=== PATIENT | male | born 1985 | race Caucasian/White ===

== ENCOUNTER 2018-03-12 17:48 | Inpatient (IN) ==
[2018-03-12 18:46] LABS: Basophils % 0.2 %; Eosinophils # 0.1 K/mcL (0.0-0.6); Eosinophils % 0.6 %; Hematocrit 45.4 % (37.5-50.1); Hemoglobin 15.8 g/dL (12.9-16.9); Immature Granulocytes % 0.4 % (0-4); Lymphocytes # 1.9 K/mcL (0.6-4.6); Lymphocytes % 15.2 %; Mean Corpuscular HGB Conc 34.8 g/dL (31.6-35.5); Mean Corpuscular Volume 86.1 fL (83.0-100.0); Mean Platelet Volume 10.1 fL (9.4-12.4); Monocytes # 0.8 K/mcL (0.0-1.3); Monocytes % 6.2 %; Neutrophils # 9.7 K/mcL (1.6-8.9); Platelet Count 200 K/mcL (140-400); Red Blood Count 5.27 M/mcL (4.19-5.50); Red Cell Distribution Width 12.6 % (11.5-14.5); Segmented Neutrophils % 77.4 %
[2018-03-12 19:04] LABS: Alanine Aminotransferase 34 Units/L (7-52); Albumin 4.2 g/dL (3.5-5.7); Albumin/Globulin Ratio 1.2 (1.1-2.2); Alkaline Phosphatase 55 Units/L (34-104); Aspartate Amino Transferase 15 Units/L (13-39); BUN/Creatinine Ratio 11 (6-26); Bilirubin,Direct 0.2 mg/dL (0.0-0.2); Bilirubin,Indirect 0.6 mg/dL (0.0-1.2); Bilirubin,Total 0.8 mg/dL (0.3-1.0); Blood Urea Nitrogen 11 mg/dL (6-20); Calcium 9.6 mg/dL (8.6-10.3); Carbon Dioxide 26 mEq/L (23-29); Chloride 100 mEq/L (98-107); Globulin 3.4 g/dL (2.4-3.5); Glucose 95 mg/dL (70-105); Lipase 14 Units/L (11-82); Osmolality,Calculated 277 (280-300); Potassium 4.1 mEq/L (3.5-5.1); Sodium 134 mEq/L (136-145); Total Protein 7.6 g/dL (6.4-8.9); eGFR For African Americans > 60 (> 60); eGFR For Non-African Americans > 60 (> 60)
[2018-03-12] MEDS ORDERED: Isovue-370 500 ML INFUS..BTL IV ONE (19:30)
[2018-03-12] MEDS ORDERED: *HR* Morphine 2 MG/ML SYRINGE IVP ONE (19:30)
--- NOTE | 2018-03-12 19:53 | Emergency Department Note ---
Disposition Clinical Impression: Diverticulitis Disposition: Admitted As Inpatient Condition: Good Instructions: Diverticulitis (ED) Referrals: NONE,PCP [Primary Care Provider] - Forms: ED Satisfaction Letter, Work/School Release Time of Disposition: 20:57 Abdominal Pain HPI - General Chief Complaint: ED Abdominal Pain Stated Complaint: abd pain Time Seen by Provider: 03/12/18 19:18 Source: patient Mode of arrival: ambulatory Limitations: no limitations Nursing Notes Reviewed: Yes Vital Signs Reviewed: Yes - History of Present Illness Pt Subjective Complaint: abdominal pain Onset (ago): day(s) (3 days) Consistency: constant Location: LLQ Pain Severity: moderate Pain Scale: 4 Quality: aching Radiation: none - Related Data Home Medications Medication Instructions Recorded Confirmed Gas-X 03/11/18 Tylenol 03/11/18 Previous Rx's Medication Instructions Recorded Na Phos,M-B/Na Phos,Di-Ba [Fleet 230 ml RC ONCE PRN #2 enema 03/11/18 Enema Extra] Polyethylene Glycol 3350 [MiraLAX] 17 gm PO BID #28 powd.pack 03/11/18 Allergies Allergy/AdvReac Type Severity Reaction Status Date / Time No Known Allergies Allergy Verified 03/12/18 17:59 All systems ED: reviewed and negative except as stated. Review of Systems: As Per HPI Constitutional: Denies: fever, chills, weakness, weight change Eyes: Denies: eye pain, eye discharge, vision change Cardiovascular: Denies: chest pain, palpitations, dyspnea on exertion, edema, syncope Respiratory: Denies: cough, dyspnea, wheezes, hemoptysis, stridor Gastrointestinal: Reports: abdominal pain, constipation Genitourinary: Denies: urgency, dysuria, frequency, hematuria Musculoskeletal: Denies: back pain, neck pain, arthralgia, myalgia Integumentary: Denies: rash, abrasion, lesions Neurological: Denies: headache, weakness, numbness, paresthesias, confusion, abnormal gait, vertigo Psychiatric: Denies: anxiety, depression, suicidal thoughts, homicidal thoughts , auditory hallucinations, visual hallucinations Endocrine: Denies: fatigue Hematological/Lymphatic: Denies: easy bleeding, easy bruising Allergic/Immunologic: Denies: facial swelling, urticaria Abdominal Pain PMH - Past Medical History Medical history: Reports: no medical history - Social History Smoking status: 2nd Hand Smoke Exposure Alcohol use: Reports: occasionally Physical Exam - General Limitations: no limitations General appearance: alert, in no apparent distress - Head Head exam: atraumatic, normocephalic - Eye Eye exam: Present: normal appearance, PERRL, EOMI - ENT ENT exam: normal exam, normal oropharynx, mucous membranes moist - Neck Neck exam: Present: normal inspection, full ROM, trachea midline - Chest Chest inspection: Present: normal inspection, symmetric chest wall rise - Respiratory Respiratory exam: Present: normal lung sounds bilaterally - Cardiovascular Cardiovascular exam: Present: regular rate, normal rhythm, normal heart sounds - Abdominal Exam Abdominal exam: Present: soft, tenderness Abdominal tenderness: Present: LLQ - Extremities Exam Extremities exam: Present: normal inspection, full ROM. Absent: tenderness, pedal edema - Neurological Exam Neurological exam: Present: alert, oriented X3 - Psychiatric Psychiatric exam: Present: normal affect, normal mood - Skin Skin exam: Present: warm, dry, intact, normal color Course Course Narrative: This is a 33-year-old male with pronounced left lower quadrant tenderness. Concern is for diverticulitis As noted below, evaluation was consistent with diverticulitis. Radiology called to report perforation. I discussed his situation with Dr. Mann, the on- call surgeon, who recommended we go ahead with piperacillin/tazobactam and admission to the hospital. Vital Signs Temperature 100.0 F H 03/12/18 17:57 Pulse Rate 109 03/12/18 17:57 Respiratory Rate 18 03/12/18 17:57 Blood Pressure 149/96 03/12/18 17:57 O2 Sat by Pulse Oximetry 98 03/12/18 17:57 Temperature 100.0 F H 03/12/18 17:57 Pulse Rate 109 03/12/18 17:57 Respiratory Rate 18 03/12/18 17:57 Blood Pressure 149/96 03/12/18 17:57 O2 Sat by Pulse Oximetry 98 03/12/18 17:57 Oxygen Delivery Oxygen Delivery Room Air Abdominal Pain - Differential Diagnosis Differential Diagnosis: Likely: diverticulitis - Medical Records Medical records reviewed: Yes I reviewed the patient's medical records. - Lab Data Lab results reviewed: Yes I reviewed the patient's lab results. Result diagrams: 03/12/18 18:29 03/12/18 18:29 Lab Results 07/06/18 07/06/18 Range/Units 18:29 18:29 WBC 12.5 H (4.3-11.1) K/mcL RBC 5.27 (4.19-5.50) M/mcL Hgb 15.8 (12.9-16.9) g/dL Hct 45.4 (37.5-50.1) % MCV 86.1 (83.0-100.0) fL MCH 30.0 (28.0-33.3) pg MCHC 34.8 (31.6-35.5) g/dL RDW 12.6 (11.5-14.5) % Plt Count 200 (140-400) K/mcL MPV 10.1 (9.4-12.4) fL Immature Gran % 0.4 (0-4) % Seg Neutrophils % 77.4 % Lymphocytes % 15.2 % Monocytes % 6.2 % Eosinophils % 0.6 % Basophils % 0.2 % Neutrophils # 9.7 H (1.6-8.9) K/mcL Lymphocytes # 1.9 (0.6-4.6) K/mcL Monocytes # 0.8 (0.0-1.3) K/mcL Eosinophils # 0.1 (0.0-0.6) K/mcL Basophils # 0.0 (0.0-0.2) K/mcL Sodium 134 L (136-145) mEq/L Potassium 4.1 (3.5-5.1) mEq/L Chloride 100 (98-107) mEq/L Carbon Dioxide 26 (23-29) mEq/L BUN 11 (6-20) mg/dL Creatinine 1.02 (0.70-1.30) mg/dL Est GFR ( Amer) > 60 (> 60) Est GFR (Non-Af Amer) > 60 (> 60) BUN/Creatinine Ratio 11 (6-26) Glucose 95 (70-105) mg/dL Calculated Osmolality 277 L (280-300) Calcium 9.6 (8.6-10.3) mg/dL Total Bilirubin 0.8 (0.3-1.0) mg/dL Direct Bilirubin 0.2 (0.0-0.2) mg/dL Indirect Bilirubin 0.6 (0.0-1.2) mg/dL AST 15 (13-39) Units/L ALT 34 (7-52) Units/L Alkaline Phosphatase 55 (34-104) Units/L Serum Total Protein 7.6 (6.4-8.9) g/dL Albumin 4.2 (3.5-5.7) g/dL Globulin 3.4 (2.4-3.5) g/dL Albumin/Globulin Ratio 1.2 (1.1-2.2) Lipase 14 (11-82) Units/L
[2018-03-12] MEDS ORDERED: Ondansetron ODT 4 MG TAB.RAPDIS SL PRN (21:00)
[2018-03-12] MEDS ORDERED: 0.9 % Sodium Chloride 1,000 ML IVC ONE (21:00)
--- NOTE | 2018-03-12 21:10 | General Surg History&Physical ---
Date of Encounter: 03/12/18 Time of Encounter: 21:07 Assessment and Plan (1) Diverticulitis Current Visit: Yes Status: Acute 33M with diverticulitis; NPO IVF abx pain control activity as tolerated serial exams no acute surgery at present; even though there is free air, the amount of free air is pretty small and the patient is otherwise hemodynamically stable and non peritoneall; The assessment and plan as outlined above was discussed with the patient and/or family members who expressed understanding and agreement. All questions were answered. History of Present Illness Chief complaint: abdominal pain HPI: Mr. Maya is a 33 year old male who presents with left lower quadrant pain over the past few days. No reports of nausea or vomiting, but the patient does report PO intolerance. Patient gets some relief of pain when laying supine, otherwise, laying on left or right seems to cause lower abdominal pain again. He felt as if he were constipated, but, despite having a bowel movement, his pain persisted. He was evalauted at an urgent care center on 03/11, but, due to the severity of the pain, the patient presents to the ED today for further evaluation. He did reportedly have a fever of 101.6. A CT scan was obtained, which was reviewed and interpreted by me, demonstrated inflammation of the sigmoid colon with microscopic pickets of free air. No abscess. Past Med Surg Social Fam HX - Past Medical History Medical history: no medical history - Past Surgical History Surgical History: no surgical history - Social History Smoking Status: 2nd Hand Smoke Exposure Smokeless Tobacco Status: No Alcohol use: occasionally Medications and Allergies No Known Home Drugs 03/12/18 [History] 3 Allergy/AdvReac Type Severity Reaction Status Date / Time No Known Allergies Allergy Verified 03/12/18 17:59 Review of Systems All systems PM: The remainder of the systems were reviewed and are negative General Surgery Exam Initial Vital Signs Temp Pulse Resp BP Pulse Ox 100.0 F H 109 18 149/96 98 03/12/18 17:57 03/12/18 17:57 03/12/18 17:57 03/12/18 17:57 03/12/18 17:57 - General physical appearance no distress - Eyes normal ocular movement - ENT normocephalic - Neck no lymphadectomy - Respiratory normal expansion, normal respiratory effort - Cardiovascular Cardiovascular exam: Present: RRR - Abdomen Abdomen general surgery: Present: soft, tender Abdominal Tenderness: Present: LLQ, suprapubic (non peritoneal ) - Integumentary Integumentary general surgery: Present: warm and dry - Neurologic Present: CN 2-12 grossly intact - Musculoskeletal Present: normal posture - Psychiatric Psychiatric general surgery: Present: A&Ox3 Results - Labs 03/12/18 18:29 03/12/18 18:29 Abnormal lab results WBC 12.5 K/mcL (4.3-11.1) H 03/12/18 18:29 Neutrophils # 9.7 K/mcL (1.6-8.9) H 03/12/18 18:29 Sodium 134 mEq/L (136-145) L 03/12/18 18:29 Calculated Osmolality 277 (280-300) L 03/12/18 18:29 Diabetes panel 03/12/18 Range/Units 18:29 Sodium 134 L (136-145) mEq/L Potassium 4.1 (3.5-5.1) mEq/L Chloride 100 (98-107) mEq/L Carbon Dioxide 26 (23-29) mEq/L BUN 11 (6-20) mg/dL Creatinine 1.02 (0.70-1.30) mg/dL Glucose 95 (70-105) mg/dL Calcium 9.6 (8.6-10.3) mg/dL AST 15 (13-39) Units/L ALT 34 (7-52) Units/L Alkaline Phosphatase 55 (34-104) Units/L Albumin 4.2 (3.5-5.7) g/dL Calcium panel 03/12/18 Range/Units 18:29 Calcium 9.6 (8.6-10.3) mg/dL Albumin 4.2 (3.5-5.7) g/dL Pituitary panel 03/12/18 Range/Units 18:29 Sodium 134 L (136-145) mEq/L Potassium 4.1 (3.5-5.1) mEq/L Chloride 100 (98-107) mEq/L Carbon Dioxide 26 (23-29) mEq/L BUN 11 (6-20) mg/dL Creatinine 1.02 (0.70-1.30) mg/dL Glucose 95 (70-105) mg/dL Calcium 9.6 (8.6-10.3) mg/dL Adrenal panel 07/06/18 Range/Units 18:29 Sodium 134 L (136-145) mEq/L Potassium 4.1 (3.5-5.1) mEq/L Chloride 100 (98-107) mEq/L Carbon Dioxide 26 (23-29) mEq/L BUN 11 (6-20) mg/dL Creatinine 1.02 (0.70-1.30) mg/dL Glucose 95 (70-105) mg/dL Calcium 9.6 (8.6-10.3) mg/dL Total Bilirubin 0.8 (0.3-1.0) mg/dL AST 15 (13-39) Units/L ALT 34 (7-52) Units/L Alkaline Phosphatase 55 (34-104) Units/L Albumin 4.2 (3.5-5.7) g/dL All other labs normal. - Imaging CT scan - abdomen: report reviewed, image reviewed CT scan - pelvis: report reviewed, image reviewed
[2018-03-12] MEDS: OXYCODONE Oral CONC 10 MG/0.5 ML ORAL.SYG SL PRN (22:35)
[2018-03-13] MEDS ORDERED: Piperacillin/Tazobactam 3.375 GM in 0.9 % Sodium Chloride Mini Bag 100 ML IVPB SCH
[2018-03-13] MEDS: Piperacillin/Tazobactam 3.375 GM in 0.9 % Sodium Chloride Mini Bag 100 ML IVPB SCH ×4 (00:05→23:30)
[2018-03-13] MEDS: OXYCODONE Oral CONC 10 MG/0.5 ML ORAL.SYG SL PRN ×2 (04:38→23:38)
[2018-03-13] MEDS: 0.9 % Sodium Chloride 1,000 ML IVC SCH ×5 (04:38→20:18)
[2018-03-13] MEDS: *HR* Enoxaparin 40 MG/0.4 ML SYRINGE SQ SCH (04:39)
[2018-03-13 05:25] LABS: Basophils % 0.3 %; Eosinophils # 0.1 K/mcL (0.0-0.6); Eosinophils % 0.5 %; Hematocrit 41.5 % (37.5-50.1); Immature Granulocytes % 0.5 % (0-4); Lymphocytes # 1.7 K/mcL (0.6-4.6); Lymphocytes % 16.8 %; Mean Corpuscular HGB Conc 34.2 g/dL (31.6-35.5); Mean Corpuscular Hemoglobin 30.1 pg (28.0-33.3); Mean Corpuscular Volume 87.9 fL (83.0-100.0); Mean Platelet Volume 10.4 fL (9.4-12.4); Monocytes # 0.8 K/mcL (0.0-1.3); Monocytes % 7.8 %; Neutrophils # 7.4 K/mcL (1.6-8.9); Platelet Count 182 K/mcL (140-400); Red Blood Count 4.72 M/mcL (4.19-5.50); Red Cell Distribution Width 12.8 % (11.5-14.5); Segmented Neutrophils % 74.1 %
[2018-03-13 05:27] LABS: Hemoglobin 14.2 g/dL (12.9-16.9)
[2018-03-13 10:19] LABS: BUN/Creatinine Ratio 13 (6-26); Blood Urea Nitrogen 12 mg/dL (6-20); Calcium 9.2 mg/dL (8.6-10.3); Carbon Dioxide 28 mEq/L (23-29); Chloride 102 mEq/L (98-107); Glucose 85 mg/dL (70-105); Magnesium 1.9 mg/dL (1.6-2.6); Osmolality,Calculated 283 (280-300); Phosphorous 3.1 mg/dL (2.7-4.5); Potassium 4.3 mEq/L (3.5-5.1); Sodium 137 mEq/L (136-145); eGFR For African Americans > 60 (> 60); eGFR For Non-African Americans > 60 (> 60)
--- NOTE | 2018-03-13 16:02 | General Surgery Progress Note ---
<Niels Franco - Last Filed: 03/13/18 16:06> Date of Encounter: 03/13/18 Time of Encounter: 02:00 - Assessment and Plan (1) Diverticulitis Current Visit: Yes Status: Acute NPO IVFABX pain control as needed activity as tolerated serial exams Reassess tomorrow for potential discharge Subjective Patient reports: feels better, flatus, no bowel movement, afebrile Narrative: Patient reports he is feelig better today. His abdominal pain is reported as a 4-5/10 from a 7/10 at admission. The pain is in the LLQ. He has not take pain medications since 4AM. He mentions that since yesterday he has been having hot flashes. Discussed with patient that he will be observed for one more day and possibly discharged if pain improves. Objective Vital Signs - Last 8 Hours Temp Pulse Resp BP Pulse Ox 03/13/18 14:31 98.0 F 78 14 132/88 97 03/13/18 10:24 97.7 F 78 16 113/74 98 Intake and Output 03/13/18 03/13/18 03/13/18 07:59 15:59 23:59 Intake Total 1100 / 1100 1100 / 1100 Output Total 250 / 250 625 / 625 Balance 850 / 850 475 / 475 Intake: IV Fluids 1100 / 1100 1100 / 1100 0.9 % Sodium Chloride 1,000 ML 1000 / 1000 1000 / 1000 @ 125 mls/hr IVC .Q8H BRIGITTE Rx#: [id number] Zosyn 3.375 GM In 0.9 % Sodium 100 / 100 100 / 100 Chloride (Mini-Bag +) 100 ML @ 25 mls/hr IVPB Q8HR [facility] Rx#: [id number] Oral 0 / 0 Output: Urine 250 / 250 625 / 625 Other: Meal npo Weight 99.79 kg Blood Glucose* 89 80 Patient Weight 03/13/18 23:59 Weight 99.79 kg - General physical appearance well developed, well nourished, moderate distress - Respiratory normal expansion, normal respiratory effort - Cardiovascular Cardiovascular exam: Present: RRR - Abdomen Abdomen: Present: bowel sounds present, distended, tender Abdominal Tenderness: LLQ - Psychiatric oriented to time, oriented to person, oriented to place, speech is normal, memory intact - Labs 03/13/18 04:37 03/13/18 09:36 Diabetes panel 03/13/18 Range/Units 09:36 Sodium 137 (136-145) mEq/L Potassium 4.3 (3.5-5.1) mEq/L Chloride 102 (98-107) mEq/L Carbon Dioxide 28 (23-29) mEq/L BUN 12 (6-20) mg/dL Creatinine 0.90 (0.70-1.30) mg/dL Glucose 85 (70-105) mg/dL Calcium 9.2 (8.6-10.3) mg/dL Calcium panel 03/13/18 Range/Units 09:36 Calcium 9.2 (8.6-10.3) mg/dL Phosphorus 3.1 (2.7-4.5) mg/dL Pituitary panel 03/13/18 Range/Units 09:36 Sodium 137 (136-145) mEq/L Potassium 4.3 (3.5-5.1) mEq/L Chloride 102 (98-107) mEq/L Carbon Dioxide 28 (23-29) mEq/L BUN 12 (6-20) mg/dL Creatinine 0.90 (0.70-1.30) mg/dL Glucose 85 (70-105) mg/dL Calcium 9.2 (8.6-10.3) mg/dL Adrenal panel 03/13/18 Range/Units 09:36 Sodium 137 (136-145) mEq/L Potassium 4.3 (3.5-5.1) mEq/L Chloride 102 (98-107) mEq/L Carbon Dioxide 28 (23-29) mEq/L BUN 12 (6-20) mg/dL Creatinine 0.90 (0.70-1.30) mg/dL Glucose 85 (70-105) mg/dL Calcium 9.2 (8.6-10.3) mg/dL Consult Discharge Plan - Plan Referrals: NONE,PCP [Primary Care Provider] - <Austin Mendiola - Last Filed: 03/13/18 22:36> Date of Encounter: 03/13/18 - Assessment and Plan (1) Diverticulitis Current Visit: Yes Status: Acute Objective Vital Signs - Last 8 Hours Temp Pulse Resp BP Pulse Ox 03/13/18 19:07 98.2 F 68 16 125/81 98 Intake and Output 03/13/18 03/13/18 03/13/18 07:59 15:59 23:59 Intake Total 1100 / 1100 1100 / 1100 1100 / 1100 Output Total 250 / 250 625 / 625 600 / 600 Balance 850 / 850 475 / 475 500 / 500 Intake: IV Fluids 1100 / 1100 1100 / 1100 1100 / 1100 0.9 % Sodium Chloride 1,000 ML 1000 / 1000 1000 / 1000 1000 / 1000 @ 125 mls/hr IVC .Q8H [facility] Rx#: [id number] Zosyn 3.375 GM In 0.9 % Sodium 100 / 100 100 / 100 100 / 100 Chloride (Mini-Bag +) 100 ML @ 25 mls/hr IVPB Q8HR [facility] Rx#: [id number] Oral 0 / 0 0 / 0 Output: Urine 250 / 250 625 / 625 600 / 600 Other: Meal npo NPO DINNER # Bowel Movements 0 Weight 99.79 kg Blood Glucose* 89 80 77 Patient Weight 03/13/18 23:59 Weight 99.79 kg - Labs 03/13/18 04:37 03/13/18 09:36 Diabetes panel 03/13/18 Range/Units 09:36 Sodium 137 (136-145) mEq/L Potassium 4.3 (3.5-5.1) mEq/L Chloride 102 (98-107) mEq/L Carbon Dioxide 28 (23-29) mEq/L BUN 12 (6-20) mg/dL Creatinine 0.90 (0.70-1.30) mg/dL Glucose 85 (70-105) mg/dL Calcium 9.2 (8.6-10.3) mg/dL Calcium panel 03/13/18 Range/Units 09:36 Calcium 9.2 (8.6-10.3) mg/dL Phosphorus 3.1 (2.7-4.5) mg/dL Pituitary panel 03/13/18 Range/Units 09:36 Sodium 137 (136-145) mEq/L Potassium 4.3 (3.5-5.1) mEq/L Chloride 102 (98-107) mEq/L Carbon Dioxide 28 (23-29) mEq/L BUN 12 (6-20) mg/dL Creatinine 0.90 (0.70-1.30) mg/dL Glucose 85 (70-105) mg/dL Calcium 9.2 (8.6-10.3) mg/dL Adrenal panel 03/13/18 Range/Units 09:36 Sodium 137 (136-145) mEq/L Potassium 4.3 (3.5-5.1) mEq/L Chloride 102 (98-107) mEq/L Carbon Dioxide 28 (23-29) mEq/L BUN 12 (6-20) mg/dL Creatinine 0.90 (0.70-1.30) mg/dL Glucose 85 (70-105) mg/dL Calcium 9.2 (8.6-10.3) mg/dL - Attending Attestation patient seen and examined. i have reviewed all labs, imaging, and notes. I agree with lisa above assessment and plan and wish to add the following... NPO IVF abx likely CLD in AM
[2018-03-13] MEDS ORDERED: Piperacillin/Tazobactam 3.375 GM VIAL ONE (16:30)
[2018-03-13] MEDS ORDERED: Acetaminophen 325 MG TABLET PO PRN (16:48)
[2018-03-14] MEDS: 0.9 % Sodium Chloride 1,000 ML IVC SCH (04:32)
[2018-03-14] MEDS: *HR* Enoxaparin 40 MG/0.4 ML SYRINGE SQ SCH (05:40)
[2018-03-14 07:40] VITALS: BP 133/82
[2018-03-14] MEDS ORDERED: metroNIDAZOLE 500 MG TABLET PO SCH (09:00)
[2018-03-14] MEDS ORDERED: levoFLOXacin 750 MG TABLET PO SCH (09:00)
--- NOTE | 2018-03-14 10:01 | Discharge Summary ---
Date of Encounter: 03/14/18 Time of Encounter: 10:00 - Discharge Diagnosis (1) Diverticulitis Priority: Primary Status: Acute Comments: admitted for diverticulitis; with microperforation; pain resolved; start diet today CLD for breakfast, reg for lunch; okay for discharge if able to tolerate lunch; follow up with Dr. Mendiola in two weeks to schedule colonoscopy General Surgery Exam Initial Vital Signs Temp Pulse Resp BP Pulse Ox 100.0 F H 109 18 149/96 98 03/12/18 17:57 03/12/18 17:57 03/12/18 17:57 03/12/18 17:57 03/12/18 17:57 - General physical appearance no distress - Eyes normal ocular movement - ENT normocephalic - Neck no lymphadectomy - Respiratory normal expansion, normal respiratory effort - Cardiovascular Cardiovascular exam: Present: RRR - Abdomen Abdomen general surgery: Present: soft, non tender - Integumentary Integumentary general surgery: Present: warm and dry - Neurologic Present: CN 2-12 grossly intact - Musculoskeletal Present: normal posture - Psychiatric Psychiatric general surgery: Present: A&Ox3 - Hospital Course Hospital course: Mr. Maya is a 33 year old male - Time Spent with Patient Total time spent providing and/or coordinating discharge services: - Discharge Medications Home Medications: No Known Home Drugs 03/12/18 [History] Allergies/Adverse Reactions: 3 Allergy/AdvReac Type Severity Reaction Status Date / Time ibuprofen Allergy Hives Verified 03/13/18 16:38 Date of admission: 03/12/18 23:12 Primary care physician: PCP NONE Discharging clinician: Austin Mendiola Anticipated date of discharge: 03/14/18 Labs on day of discharge: Labs from last 24 hours 03/14/18 03/13/18 03/13/18 05:29 23:38 16:27 Sodium Potassium Chloride Carbon Dioxide BUN Creatinine Est GFR ( Amer) Est GFR (Non-Af Amer) BUN/Creatinine Ratio Glucose POC Glucose 58 L 69 L 77 Calculated Osmolality Calcium Phosphorus Magnesium 03/13/18 03/13/18 11:05 09:36 Sodium 137 Potassium 4.3 Chloride 102 Carbon Dioxide 28 BUN 12 Creatinine 0.90 Est GFR ( Amer) > 60 Est GFR (Non-Af Amer) > 60 BUN/Creatinine Ratio 13 Glucose 85 POC Glucose 80 Calculated Osmolality 283 Calcium 9.2 Phosphorus 3.1 Magnesium 1.9 - Patient Status Disposition: Home, Self-Care Condition: Good Overall status at discharge: patient is back to baseline - Discharge Instructions Instructions: Diverticulitis (DC) Follow Up With: NONE,PCP [Primary Care Provider] - Austin Mendiola MD [Non-Partnered Physician] - 03/31/18 (will need follow up for colonoscopy)
== END 2018-03-14 11:00 | disposition home or self-care (01) | DRG 392 ==
LOC: EMEROO 17:48 → 3ANU 23:12
PROVIDERS: ADMIT Surgery; ATTEND Surgery